=== PATIENT | male | born 1960 | race Caucasian/White ===

== ENCOUNTER 2022-04-20 09:55 | Outpatient (CLI) | payer MEDICARE, MEDICAID | END 2022-04-20 09:56 | disposition home or self-care (01) | LOC: CSHULT 09:55 | PROVIDERS: ATTEND Family Medicine | DX: R79.89 Other specified abnormal findings of blood chemistry (principal); Z90.49 Acquired absence of other specified parts of digestive tract | CPT/HCPCS: 76705 ==